=== PATIENT | male | born 1980 | race Caucasian/White ===

== ENCOUNTER 2019-05-23 08:29 | Outpatient (CLI) | payer OTHER, SELFPAY ==
[2019-05-27 00:05] LABS: SARS-CoV-2 RNA Undetected (Undetected); SARS-CoV-2 Specimen Source Nasopharynx
== END 2019-05-23 08:49 ==
PROVIDERS: PCP Nurse Practitioner; Visit Provider Nurse Practitioner
DX: Z11.59 Encounter for screening for other viral diseases (principal)
CPT/HCPCS: U0003

== ENCOUNTER 2020-04-09 15:10 | Outpatient (CLI) | payer OTHER, SELFPAY ==
--- NOTE | 2020-04-09 15:00 | RT.EKG_ITS ---
APPROVED REPORT Exam: Resting ECG Patient Location: O HR:76 bpm ECG Measurements Heart Rate 76 AXIS CA 195 P 31 QRSd 106 QRS -5 QT 390 T 25 QTc 438 Conclusion Sinus rhythm...normal P axis, V-rate 60- 99 Normal Electrocardiogram
== END 2020-04-09 15:11 | disposition home or self-care (01) ==
LOC: DI.KIM 15:10
PROVIDERS: PCP Nurse Practitioner; Visit Provider Nurse Practitioner
DX: R07.9 Chest pain, unspecified (principal); R06.02 Shortness of breath
CPT/HCPCS: 93010

== ENCOUNTER 2020-05-02 00:47 | Outpatient (CLI) | payer OTHER, SELFPAY ==
--- NOTE | 2020-05-02 09:15 | DI.NM_ITS ---
APPROVED REPORT Exam: Exercise Treadmill Patient Location: Out-Patient Room/Bed: Stress Nurse: Génesis Negro RN Ordering Provider:WILLIAM WELCH, Contact Number: [phone] BMI: 62.16 Baseline Rhythm: Sinus Rhythm Indications: ATYPICAL CHEST PAIN, DYSPNEA ON EXERTION, SHORTNESS OF BREATH. Medical History Medical History: ROSEY w/ CPAP use, Morbid obesity, Chest pain, SOB. Cardiac Medications: None. Allergies: No known drug allergies Cardiac Risk Factors: FHX of CAD, Obesity Previous Cardiac Procedures: None Pretest Chest Pain Characteristics: Atypical angina (02/24) Exercise History: Sedentary Physical Disabilities: None. Lung Sounds: Clear to auscultation Heart Sounds: Regular Stress Test Details Test: Exercise stress testing was performed using a modified Colton protocol. Nuclear Acquisition: Rest Tc-99m/Stress Tc-99m 2 days Rest Isotope: Tc-99m Sestamibi. Dose: 30.0 Date: 05/01/20 Injection Time: 0900 Stress Isotope: Tc-99m Sestamibi. Dose: 45 Date: 05/02/20 Injection Time: 0935 HR Resting HR Supine: 76 bpm Max Heart Rate (APMHR): 182.977701 bpm Resting HR Standin bpm Target HR (85% APMHR): 154.939821 bpm Max HR Achieved: 160 bpm % of APMHR: 87.91 Recovery HR: 93 bpm HR response to stress: Abnormal HR response to stress BP Resting BP Supine: 120/84 mmHg Resting BP Standin/80 mmHg Max BP: 142/78 mmHg Recovery BP: 130/76 mmHg BP response to stress: Normal blood pressure response to stress. ECG Resting ECG: Sinus Rhythm Ectopy: PVC Stress ECG: Sinus Tachycardia ST Change: No significant ST segment changes noted Arrhythmia: None Recovery ECG: Sinus Rhythm Recovery ST Change: No significant ST segment changes noted Recovery Arrhythmia: PVCs. Clinical Reason for Termination: Dyspnea, Fatigue Stress Symptoms: Chest pain, General Fatigue, Dyspnea Exercise duration: 7 min29 sec Exercise capacity: 7.67 METs Zimmerman Treadmill Score: 2.6 Rate Pressure Product: [id number] Stress ECG Conclusion 1. The resting electrocardiogram was normal 2. The patient exercised on the modified Colton protocol and completed a workload of 7.67 METS and ach ieved 87% of maximum predicted heart rate for age 3. Normal heart rate and blood pressure response to exercise 4. Electrocardiographically there was no evidence of myocardial ischemia 5. Sporadic PVCs were noted Zimmerman Treadmill Score is 2.6 which is Moderate risk. Stress Test Summary STAGE Time (mins) Speed (mph) Grade (%) HR BP SYMPTOMS METS Supine 76 120/84 1/10 CP Standing 90 122/80 1 3 1.7 10 119 130/82 4.6 2 6 2.5 12 152 7 1 min recovery 135 134/70 3/10 CP 3 min recovery 103 142/78 1/10 CP 6 min recovery 93 130/76 Speed and elevation modified in the third stage to encourage continuation of exercise. MPI Conclusion No evidence of myocardial ischemia or prior infarction EF 51% Radiologist Interpretation Radiologist Interpretation by: Reyes Bose MD Interpretation Date/Time: 05/07/2020 16:20:20
== END 2020-05-02 01:07 ==
PROVIDERS: PCP Nurse Practitioner; Visit Provider Nurse Practitioner
DX: R07.89 Other chest pain (principal); R06.09 Other forms of dyspnea; R06.02 Shortness of breath; Z82.49 Family history of ischemic heart disease and other diseases of the circulatory system; E66.9 Obesity, unspecified; I49.3 Ventricular premature depolarization
CPT/HCPCS: 78452; 93017

== ENCOUNTER 2020-05-02 02:41 | Outpatient (CLI) | payer OTHER, SELFPAY ==
[2020-05-02 09:02] LABS: HCT 45.2 % (40.0-50.0); HGB 15.2 g/dL (13.5-17.5); MCH 30.4 pg (27.0-33.0); MCHC 33.6 % (32.0-36.0); MCV 90.4 fL (80-95); MPV 10.2 fL (8.0-11.0); Platelet Count 253 10^3/uL (130-400); RDW 13.1 % (11.8-14.1); RDW-SD 42.9 fL; WBC 5.83 10^3/uL (4.4-10.8)
[2020-05-02 09:26] LABS: ALT 88 U/L (16-63); AST 33 U/L (15-37); Albumin 3.8 g/dL (3.4-5.0); Alkaline Phosphatase 83 U/L (46-116); Anion Gap 10.1 mmol/L (3-11); BUN 13 mg/dL (7-18); Bilirubin, Total 0.6 mg/dL (0.2-1.0); CO2 24.9 mmol/L (21.0-32.0); Calcium 8.9 mg/dL (8.5-10.1); Chloride 103 mmol/L (98-107); Glucose 110 mg/dL (74-106); Potassium 4.1 mmol/L (3.5-5.1); Sodium 138 mmol/L (136-145); TSH (W/Ref FT4) 4.49 uIU/mL (0.36-3.74); Total Protein 7.7 g/dL (6.4-8.2)
[2020-05-02 09:30] LABS: Hemoglobin A1C 5.8 % (<5.7)
[2020-05-02 09:43] LABS: FREE T4 0.96 ng/dL (0.76-1.46)
[2020-05-02 09:55] LABS: Calculated LDL 88 mg/dL (<100); Cholesterol 156 mg/dL (<200); HDL Cholesterol 45 mg/dL (40-60); Triglyceride 118 mg/dL (<150)
== END 2020-05-02 02:42 | disposition home or self-care (01) ==
LOC: LBO 02:42
PROVIDERS: PCP Nurse Practitioner; Visit Provider Nurse Practitioner
DX: I10 Essential (primary) hypertension (principal); R07.9 Chest pain, unspecified; R06.02 Shortness of breath; E66.01 Morbid (severe) obesity due to excess calories; G47.33 Obstructive sleep apnea (adult) (pediatric)
CPT/HCPCS: 80053; 80061; 85027; 83036; 84439; 84443

== ENCOUNTER 2021-02-20 08:28 | Emergency (ER) | payer SELFPAY ==
[2021-02-20] VITALS (20 sets, daily range): BP systolic 123–127; BP diastolic 73–82; PULSE 92–112; RESP 2–20; TEMP 36.4; O2SAT 92–96
--- NOTE | 2021-02-20 08:30 | DI.RAD_ITS ---
Exam(s) XR PORTABLE CHEST AP EXAM: XR PORTABLE CHEST AP CLINICAL HISTORY: Covid Positive, SOB TECHNIQUE: 2D digital imaging was performed of the chest. One image was obtained. An AP view was ob tained. COMPARISON: No exams were available for comparison FINDINGS: MEDIASTINUM: Normal. HEART: Normal. PULMONARY VASCULATURE: Normal. LUNGS: There are faint multifocal opacities in the lung suspicious for pneumonia. PLEURAL SPACE: No pleural effusion or pneumothorax. BONE:Within normal limits for the patient's age. OTHER FINDINGS:Normal. IMPRESSION: Faint multifocal ground-glass opacities in the lungs suspicious for pneumonia. Findings can be seen with COVID-19 pneumonia. DATA REPOSITORY: RADIATION DOSE DELIVERED:
--- NOTE | 2021-02-20 08:46 | ED.GENADUL_ITS ---
Discharge Plan Disposition Patient Disposition: HOME Condition: Stable Discharge Details Clinical Impression: COVID-19 Primary Care Provider: Evon Hernandez ED Provider: Vandana Bell Home Meds and New Rx's Prescriptions: New doxycycline hyclate 100 mg capsule 100 mg PO BID 10 Days Qty: 20 RF: 0 No Action ibuprofen 200 mg Tablet 400 mg PO Q6H PRNRF: 0 Discharge Instructions Instructions: COVID-19 (Coronavirus Disease 2019) (ED), COVID-19: Slow the Coronavirus Spread (ED) Additional Instructions: Continue monitoring your O2 sat. You were given the monoclonal antibodies today. Please take vitamins including vitamin C, D3, zinc. Take the antibiotics as directed twice daily. Please eat yogurt or take a probiotic while on the antibiotics. Follow up with primary care provider in 3-5 days. Return to ED sooner if any worsening or concerns. Increase oral fluids. Please take Tylenol or Ibuprofen with food every 4-6 hours as needed for pain and swelling. Please continue to quarantine. Stand Alone Forms: POSITIVE COVID-19/NO TESTING, Work Release Referrals: Evon Hernandez, [employer] [id number] [Primary Care Provider] - 1 week Medical Decision Making 41-year-old male presents to the ER with chief complaint of insomnia, shortness of breath, fever and loss of taste and smell decreased appetite since kassidy COVID-19 tested positive on the . He is unvaccinated. He reports nausea no vomiting no diarrhea. He has a past medical history of morbid obesity, obstructive sleep apnea, elevated blood pressure. He reports subjective fevers on and off since Wednesday. On initial examination he is satting 95% on room air and heart rate is 114. He reports the last 2 days he has had O2 sat reading reading 89% on room air. I did discuss options for treatment including the monoclonal antibodies with patient and due to his morbid obesity he does qualify for. Patient agrees to the treatment. IV, CBC, CMP, monoclonal antibodies ordered. CXR: FINDINGS: MEDIASTINUM: Normal. HEART: Normal. PULMONARY VASCULATURE: Normal. LUNGS: There are faint multifocal opacities in the lung suspicious for pneumonia. PLEURAL SPACE: No pleural effusion or pneumothorax. BONE:Within normal limits for the patient's age. OTHER FINDINGS:Normal. IMPRESSION: Faint multifocal ground-glass opacities in the lungs suspicious for pneumonia. Findings can be seen with COVID-19 pneumonia. Patient received monoclonal antibody was observed for approximately an hour post infusion without any complications. Patient remained hemodynamically stable throughout stay. Discharged with quarantine instructions and given doxycycline here in the department prescribe doxycycline twice daily x2 days. This text was generated using Treatsieation system, please disregard any oddities of phrase or misspellings. HPI General Mode of arrival: ambulatory . Date/Time Provider Initiated Documentation: 02/20/21 08:29 . Limitations to Documentation: no limitations . Information obtained by: patient and RN notes reviewed . HPI Narrative: 41-year-old male presents to the ER with chief complaint of insomnia, shortness of breath, fever and loss of taste and smell decreased appetite since kassidy COVID-19 tested positive on the . He is unvaccinated. He reports nausea no vomiting no diarrhea. He has a past medical history of morbid obesity, obstructive sleep apnea, elevated blood pressure. He reports subjective fevers on and off since Wednesday. On initial examination he is satting 95% on room air and heart rate is 114. He reports the last 2 days he has had O2 sat reading reading 89% on room air. Related Data Home Medications Medication Instructions Recorded Confirmed doxycycline hyclate 100 mg PO BID 10 Days #20 cap 02/20/21 ibuprofen 400 mg PO Q6H PRN 02/20/21 02/20/21 Previous Rx's Medication Instructions Recorded doxycycline hyclate 100 mg PO BID 10 Days #20 cap 02/20/21 Allergies Allergy/AdvReac Type Severity Reaction Status Date / Time No Known Allergies Allergy Verified 02/20/21 08:43 General Stated Complaint: GenMedical KIM: 3 Review of Systems All systems reviewed & are unremarkable except as noted in HPI and below Constitutional Constitutional: Reports as per HPI, Reports difficulty sleeping, Reports fever(s) and Reports poor appetite Cardiovascular Cardiovascular: Denies chest pain, Denies chest pain at rest and Reports dyspnea Respiratory Respiratory: Reports dyspnea Gastrointestinal Gastrointestinal: Denies diarrhea, Reports nausea and Denies vomiting PFSH All Active Problems (Updated 02/20/21 @ 10:41 by Vandana Bell) COVID-19 (Acute) Loose stools (Acute) Difficulty hearing (Acute) Elevated blood pressure reading in office with diagnosis of hypertension (Acute) BMI 60.0-69.9, adult (Acute) Family history of heart disease (Acute) Chest pain (Acute) SOB (shortness of breath) (Acute) Sore throat (Acute) Cough (Acute) Viral syndrome (Acute) ROSEY (obstructive sleep apnea) (Chronic) Morbid obesity (Acute) Follicular cyst of skin (Acute 07/17/16) Derm Dr Dubose. scalp- left parietal and right posterotemporal biopsy Family History Mother Myocardial infarction Asthma Father No problems noted. Social History Smoking/Tobacco Use Status: Never Smoking risk assessment performed?: Yes Alcohol Intake: current Alcohol Intake frequency: holidays/special occasions only Drug use: Never Substance use type: does not use Do you feel safe at home: Yes Do you feel safe in your relationship?: Yes Exam Narrative Exam Narrative: Constitutional: Alert and oriented x3. Appears stated age. body habitus. Head: Normocephalic, no trauma. Eyes: Pupils PERRL, Red reflex noted, EOM's intact. Eyelids symmetrical without lesions, discharge, or swelling. ENT: Bilateral TM's WNL, External ear normal to inspection, no mastoid TTP, swelling, or erythema, Nasal turbinates WNL, no nasal discharge. Normal dentition, Posterior pharynx WNL, no exudate. Chest: Tachycardic, Normal S1, S2, distal pulses intact. Resp: Lungs clear to auscultation bilaterally, no wheezes, rales, or rhonchi. Abdomen: Soft, non-distended, Normoactive bowel sounds all 4 quads. Musculoskeletal: Normal gait, 5/5 strength to all four extremities. Skin: No suspicious rashes or lesions. Capillary refill less than 2 sec. Neurologic: Cranial nerves II-XII intact. Alert and oriented x 3. Motor: No deficits noted. Sensory: Intact bilaterally all 4 extremities. Reflexes: DTR's intact bilaterally.. Hematologic/Lymphatic: No ecchymosis, no lymphadenopathy. Course Vital Signs Vital signs: Vital Signs Temperature 36.4 C L 02/20/21 08:36 Pulse 112 H 02/20/21 08:36 Respiratory Rate 20 02/20/21 08:36 Blood Pressure 127/82 02/20/21 08:36 Pulse Oximetry 96 02/20/21 08:36 Temperature 36.4 C L 02/20/21 08:36 Temperature Source Temporal Artery Scan 02/20/21 08:36 Pulse 112 H 02/20/21 08:36 Respiratory Rate 20 02/20/21 08:41 Respiratory Effort Incrsd Work of Breathing 02/20/21 08:41 Respiratory Depth Normal 02/20/21 08:41 Respiratory Pattern Normal 02/20/21 08:41 Blood Pressure 127/82 02/20/21 08:36 Blood Pressure Position Sitting 02/20/21 08:36 Pulse Oximetry 96 02/20/21 08:36 Oxygen Delivery Method Room Air 02/20/21 08:36 Oxygen Flow Rate 0 02/20/21 08:36 Pain Level 2 02/20/21 08:36
[2021-02-20] MEDS: Normal Saline Flush 10 ML SYR IVP (08:57)
[2021-02-20] MEDS: Normal Saline 1,000 ML 1000 ML IV (08:57)
[2021-02-20 09:05] LABS: Abs Immature Grans 0.03 10^3/uL (0.0-0.06); Absolute Basophil Count 0.01 10^3/uL (0.0-0.2); Absolute Lymphocyte Count 0.77 10^3/uL (1.2-3.4); Absolute Monocyte Count 0.19 10^3/uL (0.1-0.8); Absolute Neutrophil Count 3.75 10^3/uL (1.2-6.7); Basophils % 0.2; HCT 48.8 % (40.0-50.0); HGB 16.3 g/dL (13.5-17.5); Immature Grans % 0.6; Lymphocytes % 16.2; MCH 30.2 pg (27.0-33.0); MCHC 33.4 % (32.0-36.0); MCV 90.4 fL (80-95); MPV 9.9 fL (8.0-11.0); Nucleated RBC 0 %; Platelet Count 168 10^3/uL (130-400); RDW 13.4 % (11.8-14.1); RDW-SD 45.1 fL; WBC 4.75 10^3/uL (4.4-10.8)
[2021-02-20 09:25] LABS: ALT 78 U/L (16-63); AST 80 U/L (15-37); Albumin 3.8 g/dL (3.4-5.0); Alkaline Phosphatase 98 U/L (46-116); Anion Gap 10.3 mmol/L (3-11); BUN 10 mg/dL (7-18); Bilirubin, Total 0.5 mg/dL (0.2-1.0); CO2 25.7 mmol/L (21.0-32.0); Calcium 8.6 mg/dL (8.5-10.1); Chloride 100 mmol/L (98-107); Glucose 119 mg/dL (74-106); Potassium 3.8 mmol/L (3.5-5.1); Sodium 136 mmol/L (136-145); Total Protein 8.1 g/dL (6.4-8.2)
[2021-02-20] MEDS: Normal Saline 250 ML 30 ML IV (09:31)
[2021-02-20] MEDS: Doxycycline Hyclate 100 MG CAP PO (11:23)
--- NOTE | 2021-02-20 18:42 | NUR.NOTE ---
RX called to [facility] in [place]. left message on patient's voicemail.
== END 2021-02-20 11:34 | disposition home or self-care (01) ==
PROVIDERS: Emergency Provider Registered Nurse Emergency; PCP Nurse Practitioner
DX: U07.1 COVID-19 (principal); G47.09 Other insomnia; R50.9 Fever, unspecified; R43.8 Other disturbances of smell and taste; R11.0 Nausea
CPT/HCPCS: 36415; 80053; 96360; 96361; 96365; 99284; Q0047; 71045; 85025

== ENCOUNTER 2021-03-20 15:56 | Outpatient (CLI) | payer BC, SELFPAY ==
--- NOTE | 2021-03-20 09:00 | DI.RAD_ITS ---
Exam(s) XR CHEST 2V PA LATERAL EXAM: XR CHEST 2V PA LATERAL CLINICAL HISTORY: SOB, R06.02, H/O COVID-19 DIAGNOSED 02/20/21, Z86.16 TECHNIQUE: 2D digital imaging was performed. COMPARISON: CR XR PORTABLE CHEST AP from 02/20/2021 FINDINGS: The heart is not enlarged. The lungs are clear and well expanded. No pleural effusion seen. Mediastin al contours appear intact. IMPRESSION: Normal chest. Bilateral pulmonary opacities noted on prior examination of February 20 have resolved. RADIATION DOSE DELIVERED: Total DLP
== END 2021-03-20 16:16 ==
PROVIDERS: PCP Nurse Practitioner; Visit Provider Nurse Practitioner
DX: R06.02 Shortness of breath (principal); Z86.16 Personal history of COVID-19
CPT/HCPCS: 71046

== ENCOUNTER 2023-10-19 01:54 | Emergency (ER) | payer BC, SELFPAY ==
[2023-10-19] VITALS (14 sets, daily range): BP systolic 146; BP diastolic 94; PULSE 88–105; RESP 14–22; TEMP 36.9; O2SAT 92–97
--- NOTE | 2023-10-19 01:45 | RT.EKG_ITS ---
APPROVED REPORT Exam: Resting ECG Reason for Exam: short of breath Patient Location: E HR:99 bpm ECG Measurements Heart Rate 99 AXIS RI 180 P 31 QRSd 102 QRS -17 QT 349 T 32 QTc 448 Conclusion Sinus rhythm...normal P axis, V-rate 60- 99 Probable left ventricular hypertrophy...multiple LVH criteria Normal [place] I have reviewed and interpreted ECG and agree with software generated interpretation.
--- NOTE | 2023-10-19 02:06 | ED.GENADUL_ITS ---
Discharge Plan Disposition Patient Disposition: Home Condition: Good Discharge Details Clinical Impression: URI (upper respiratory infection) Primary Care Provider: Evon Hernandez ED Provider: Reyes Macario Meds and New Rx's Prescriptions: No Action ibuprofen 200 mg Tablet 400 mg PO Q6H PRN Discharge Instructions Instructions: Upper Respiratory Infection ED Additional Instructions: You were seen for persistent URI symptoms with associated feeling of shortness of breath and palpitations. Your oxygen level, vital signs, exam, labs, chest x-ray, EKG are all reassuring. Follow-up with primary care end of the week if you continue to not improve. Rest and stay hydrated. Return to ED for any chest pain, worsening shortness of breath, confusion, syncope, other concerns. Referrals: Evon Hernandez, [facility] [Primary Care Provider] - [facility] General Mode of arrival: ambulatory . Date/Time Provider Initiated Documentation: 10/19/23 02:06 . Limitations to Documentation: no limitations . Information obtained by: patient . HPI Narrative: Patient presents to ED from home with complaint of difficulty breathing especially when lying down, continued cough, malaise and fatigue, palpitations. Denies any chest pain. Reports being ill with URI symptoms for a week and just has not seemed to recover. Reports negative home COVID. Denies any abdominal pain or GI symptoms. Denies any leg pain or leg swelling. Does have history of sleep apnea and uses CPAP. No fever that he is aware of but has been having hot flashes and chills. Had similar symptoms in the past after being sick and was ultimately found to have pneumonia prompting him to come to the ED since he seemed to be having more trouble breathing tonight than before. Related Data Home Medications ?Medication ?Instructions ?Recorded ?Confirmed ibuprofen 200 mg tablet 400 mg PO Q6H PRN 02/20/21 10/19/23 Allergies Allergy/AdvReac Type Severity Reaction Status Date / Time No Known Allergies Allergy Verified 10/19/23 01:59 General Stated Complaint: SOB KIM: 3 Review of Systems Narrative: Per HPI Exam Narrative Exam Narrative: Const: Morbidly obese male in NAD. VS per triage. HEENT: NC/AT. Normal facial exam. Neck: Supple. Trachea midline. Lungs: Normal respiratory effort. Lungs are clear, maybe a little diminished at right base. Cor: RRR without murmur. Good radial pulses. GI: Soft/ND/NT. Neuro: A+O x 3. Normal speech, mentation, gait. Cranial nerves II - XII grossly intact. No gross motor or sensory deficit. Ext: No C/C/E. Course Vital Signs Vital signs: Vital Signs Temperature 98.4 F 10/19/23 02:00 Pulse 98 H 10/19/23 02:00 Respiratory Rate 18 10/19/23 02:00 Blood Pressure 146/94 H 10/19/23 02:00 Pulse Oximetry 96 10/19/23 02:00 Temperature 98.4 F 10/19/23 02:00 Temperature Source Temporal Artery Scan 10/19/23 02:00 Pulse 98 H 10/19/23 02:00 Respiratory Rate 18 10/19/23 02:00 Blood Pressure 146/94 H 10/19/23 02:00 Blood Pressure Position Supine 10/19/23 02:00 Pulse Oximetry 96 10/19/23 02:00 Oxygen Delivery Method Room Air 10/19/23 02:00 Oxygen Flow Rate 0 10/19/23 02:00 Pain Level 1 10/19/23 02:00 Comment Palpitation/heart skip beat 10/19/23 02:00 Medical Decision Making Patient presenting to ED with recent URI and continued malaise, difficulty with breathing especially when lying flat, palpitations that he describes as heart skipping beats. Saturations on room air are normal. Lungs are clear, maybe a little diminished in the right base. EKG from triage is sinus rhythm with no acute ST changes, PACs or PVCs. IV was established per nursing. Will send CBC, BMP and magnesium given his complaints of palpitations. Chest x-ray ordered. Patient CBC is normal. Chemistry is normal except for glucose of 197. Does not have history of diabetes, will need follow-up with primary care. Potassium and magnesium are normal. Chest x-ray per my read and preliminary radiology read w ith no acute process. No evidence of pneumonia. Discussed findings with patient. Discharged home to follow-up with primary care. Return precautions provided. Lab Data Lab results reviewed: Yes I reviewed the patient's lab results. ECG Data Attestation: I personally reviewed and interpreted this ECG (s) as follows: Prior ECG tracings: available for review Interpretation: See EKG PFSH All Active Problems (Updated 10/19/23 @ 03:58 by Reyes Macario MD) URI (upper respiratory infection) (Acute) Difficulty hearing (Acute) Elevated blood pressure reading in office with diagnosis of hypertension (Acute) BMI 60.0-69.9, adult (Acute) Family history of heart disease (Acute) Medical History ROSEY (obstructive sleep apnea) Morbid obesity Family History Mother Myocardial infarction Asthma Father No problems noted. Social History Smoking/Tobacco Use Status: Never Smoking risk assessment performed?: Yes Alcohol Intake: current Alcohol Intake frequency: holidays/special occasions only Drug use: Never Substance use type: does not use Do you feel safe at home: Yes Do you feel safe in your relationship?: Yes
--- NOTE | 2023-10-19 02:15 | DI.RAD_ITS ---
Exam(s) XR CHEST 2V PA LATERAL EXAM: XR CHEST 2V PA LATERAL CLINICAL HISTORY: cough, SOB TECHNIQUE: 2D digital imaging was performed of the chest. Two images were obtained. PA and lateral views were obtained. COMPARISON: CR XR CHEST 2V PA LATERAL from 03/20/2021 FINDINGS: MEDIASTINUM: Normal. HEART: Normal. PULMONARY VASCULATURE: Normal. LUNGS: Clear. PLEURAL SPACE: No pleural effusion or pneumothorax. BONE:Within normal limits for the patient's age. OTHER FINDINGS:Normal. IMPRESSION: No acute pulmonary findings. DATA REPOSITORY: RADIATION DOSE DELIVERED:
[2023-10-19 02:41] LABS: Anion Gap 9.1 mmol/L (3-11); BUN 7 mg/dL (7-18); CO2 25.9 mmol/L (21.0-32.0); CREATININE 1.3 mg/dL (0.70-1.30); Calcium 9.4 mg/dL (8.5-10.1); Chloride 103 mmol/L (98-107); Estimated GFR 70.78 (mL/min/1.73m2); Glucose 197 mg/dL (74-106); Magnesium 1.8 mg/dL (1.8-2.4); Potassium 4.2 mmol/L (3.5-5.1); Sodium 138 mmol/L (136-145)
[2023-10-19 02:46] LABS: Abs Immature Grans 0.06 10^3/uL (0.0-0.06); Absolute Basophil Count 0.04 10^3/uL (0.0-0.2); Absolute Eosinophil Count 0.19 10^3/uL (0.0-0.7); Absolute Lymphocyte Count 1.61 10^3/uL (1.2-3.4); Absolute Neutrophil Count 4.22 10^3/uL (1.2-6.7); Basophils % 0.6 %; Eosinophils % 2.8 %; HGB 15.5 g/dL (13.5-17.5); Immature Grans % 0.9 %; Lymphocytes % 23.6 %; MCH 31.3 pg (27.0-33.0); MCHC 33.7 % (32.0-36.0); MCV 93 fL (80-95); Monocytes % 10.3 %; Neutrophils % 61.8 %; Platelet Count 219 10^3/uL (130-400); RBC 4.95 10^6/uL (4.36-5.78); RDW 13.5 % (11.8-14.1); RDW-SD 46.2 fL; WBC 6.82 10^3/uL (4.4-10.8)
--- NOTE | 2023-10-19 03:39 | DI.VRAD_ITS ---
PROCEDURE INFORMATION: Exam: XR Chest Exam date and time: 10/19/2023 2:37 AM Age: 43 years old Clinical indication: Cough and shortness of breath TECHNIQUE: Imaging protocol: Radiologic exam of the chest. Views: 2 views. COMPARISON: CR XR CHEST 2V PA LATERAL 03/20/2021 1:59 PM FINDINGS: Lungs: Unremarkable. No consolidation. Pleural spaces: Unremarkable. No pleural effusion. No pneumothorax. Heart/Mediastinum: Unremarkable. No cardiomegaly. Bones/joints: Unremarkable. IMPRESSION: No acute findings. Dictated and Authenticated by: Eliseo Eli MD. Ordering:SURESH Chambers MD
== END 2023-10-19 04:02 | disposition home or self-care (01) ==
LOC: ER 04:12
PROVIDERS: Emergency Provider Emergency Medicine; PCP Nurse Practitioner
DX: J06.9 Acute upper respiratory infection, unspecified (principal); R06.02 Shortness of breath; R00.2 Palpitations
CPT/HCPCS: 36415; 80048; 93005; 99283; 71046; 83735; 85025; 93010

== ENCOUNTER 2024-04-20 03:01 | Outpatient (CLI) | payer BC, SELFPAY ==
[2024-04-20 08:22] LABS: Hemoglobin A1C 5.5 % (<5.7)
[2024-04-20 08:34] LABS: ALT 64 U/L (16-63); AST 29 U/L (15-37); Albumin 3.7 g/dL (3.4-5.0); Alkaline Phosphatase 86 U/L (46-116); Anion Gap 8.3 mmol/L (3-11); BUN 12 mg/dL (7-18); Bilirubin, Total 0.39 mg/dL (0.2-1.0); CO2 26.7 mmol/L (21.0-32.0); CREATININE 1.1 mg/dL (0.70-1.30); Calcium 8.9 mg/dL (8.5-10.1); Calculated LDL 91 mg/dL (<100); Chloride 106 mmol/L (98-107); Cholesterol 182 mg/dL (<200); Estimated GFR 85.95 (mL/min/1.73m2); Glucose 105 mg/dL (74-106); HDL Cholesterol 52 mg/dL (>or=40); Sodium 141 mmol/L (136-145); Total Protein 7.5 g/dL (6.4-8.2); Triglyceride 195 mg/dL (<150)
[2024-04-21 11:45] LABS: HIV-1/2 Ag & Ab Screen Negative (Negative)
[2024-04-21 12:02] LABS: Hepatitis C Ab w Rflx HCV PCR Negative (Negative)
== END 2024-04-20 03:02 | disposition home or self-care (01) ==
PROVIDERS: PCP Nurse Practitioner; Referring Provider Nurse Practitioner; Visit Provider Nurse Practitioner
DX: Z11.59 Encounter for screening for other viral diseases (principal); R73.03 Prediabetes; Z13.220 Encounter for screening for lipoid disorders
CPT/HCPCS: 36415; 80053; 80061; 86803; 87389; 83036